=== PATIENT | male | born 1990 | race Two or more races ===

== ENCOUNTER 2024-12-26 09:25 | Emergency (ER) | payer MEDICAID ==
[~2024-12-26] VITALS: Ht 175.3 cm; Wt 93.4 kg
--- NOTE | 2024-12-26 09:48 | ED.PDOC ---
General HPI Comments HPI: 34 y/o M, with PMHx of DM presents to the ED for CC of testicular swelling. Patient states, he has been experiencing right scrotal swelling x3days. Patient reports, being seen at [facility] for symptoms today (12/26/24) and being relayed to the ED for a further evaluation and a testicular ultrasound. Patient denies any history of STD/STI, penile discharge, back pain, or fever. No other symptoms or modifying factors present at this time. Initial Vitals BP: HR: RR: O2: Temp: Past Medical History: DM Past Surgical History: DENIES ANY Social History: Denies ETOH, smoking, and drug use. Medications: METFORMIN Allergies: NKA HPI: Poor Historian. REVIEW OF SYSTEMS: CONSTITUTIONAL: Denies acute: fever, diaphoresis, chills, generalized weakness. HEAD: Denies acute: headache, photophobia Eyes: Denies acute: Double vision, vision loss, eye pain, eye discharge. EARS: Denies acute: tinnitus, hearing loss, ear discharge, ear pain, THROAT: Denies acute: sore throat, swelling, difficulty swallowing , pain with swallowing, change in voice. NECK: Denies acute: neck pain, neck swelling, stiff neck. HEART: Denies acute : chest pain, palpitations, LUNGS: Denies acute: SOB, wheezing, cough, hemoptysis ABDOMEN: Denies acute: abdominal pain, Nausea, Vomiting, diarrhea, melena , hematemesis, hematochezia SKIN: Denies acute: rash, redness, lesions, itchiness. EXTREMITIES: Denies acute: calf pain, numbness, tingling, weakness, denies pain in extremity. Denies acute: Low back pain. Neuro: Denies acute: focal neurological deficit, motor or sensory focal neurological deficit, tremors, seizure like activity, confusion, dizziness, change in mental status, loss of bowel or bladder function, cauda equina like symptoms. : Denies acute: dysuria, hematuria, flank pain, increase in urinary frequency. PSYCH: Denies acute: hallucination, suicidal ideation, homicidal ideation. PHYSICAL EXAM: General: ---no-----acute distress, awake and alert. Head: normocephalic, atraumatic. Neck: supple, trachea is midline, no swelling. Throat: Normal phonation. Eyes:, no erythema, no purulent discharge, no proptosis, no icterus. Heart: regular rate, regular rhythm, no significant murmur appreciated. Lungs: no apparent respiratory distress, Able to speak in full sentences. No wheezing, no rhonchi, no crackles. No stridors Clear to auscultation bilaterally. Abdomen: non tender to palpation, non distended, soft, no guarding, no rebound, + bowel sounds. : Evaluation of the groin. Patient has normal external male genitalia uncircumcised. There is no findings to suggest inguinal hernia. No apparent swelling of the testicles. No erythema, no crepitus, no tenderness to palpation of the testicles. No palpable masses in the scrotum. Patient denies any history of STDs or penile discharge. Denies any urinary symptoms. Patient states that the swelling has significantly improved today. Neuro: Awake, Alert, oriented to name, self, situation, follows commands GCS=15. Speech is normal. Skin: no petechia, no purpura, no cyanosis, non-pale, not jaundice. Lower extremities: --no - Pitting edema no deformity, no focal swelling, no calf TTP. Makes eye contact. moves all four extremities. Face: no apparent facial droop. Ambulating in the ED independently. ED COURSE: DISCLAIMER: This medical document was created using an electronic medical record system with voice recognition software and computerized dictation system. Although this document has been carefully reviewed, there might still be some phonetic and typographical errors. Occasional wrong-word or "sound-alike" substitutions may have occurred due to the inherent limitations of voice recognition software. These areas are purely typographical due to imperfections of the software pro grams and do not reflect any compromise in the patient's medical care. Please read the chart carefully and recognize, using context, where these substitutions have occurred. Time Seen by MD: 09:30 Reviewed notes: Nurses Notes, Medications, Allergies Allergies: Coded Allergies: NO KNOWN ALLERGIES (Unverified , 12/26/24) Home Meds Active Scripts Cephalexin Monohydrate (Cephalexin) 500 Mg Cap, 500 MG PO Q8HR for 5 Days, #15 CAP Prov:SAJI YOUNG DO 12/26/24 Information Source: Patient Mode of Arrival: Ambulatory Severity: Moderate Inability to void: None Timing: Days Duration: Since onset Prehospital treatment: None Onset: Spontaneous Symptoms: None History of: None Penile discharge: None Modifying factors: None associated signs and symptoms: None Was a procedure done? Was a procedure done?: No Differential Diagnosis Kidney stone (Female): N/A Kidney stone (Male): N/A Penile/Scrotal: Epidiymitis, Foreign Body, Prostatitis, STD, UTI, Fractured Penis, Phimosis, Hydrocele, Testicular Torsion, Urolithiasis, Urinary Retention Urinary Problem (Male): Bladder Obstruction Urinary Problem (Female): N/A X-Ray, Labs, Meds, VS Vital Signs Date Time Temp Pulse Resp B/P (MAP) Pulse Ox O2 Delivery O2 Flow Rate FiO2 12/26/24 10:39 80 18 95 Room Air 12/26/24 10:39 98.6 80 18 146/66 (92) 95 98.6 12/26/24 09:36 98.3 95 18 131/92 (105) 97 98.3 Lab Test 12/26/24 10:05 12/26/24 09:38 Range/Units White Blood Count 5.6 4.4-10.8 10^3/uL Red Blood Count 6.00 H 4.5-5.90 10^6/uL Hemoglobin 17.5 13.5-17.5 g/dL Hematocrit 51.9 41.0-53.0 % Mean Corpuscular Volume 86.5 80.0-100.0 fL Mean Corpuscular Hemoglobin 29.1 28.0-32.0 pg Mean Corpuscular Hemoglobin Concent 33.7 32.0-36.0 g/dL Red Cell Distribution Width 13.7 11.8-14.3 % Platelet Count 278 140-450 10^3/uL Mean Platelet Volume 7.5 6.9-10.8 fL Neutrophils (%) (Auto) 60.7 37.0-80.0 % Lymphocytes (%) (Auto) 28.2 10.0-50.0 % Monocytes (%) (Auto) 8.5 0.0-12.0 % Eosinophils (%) (Auto) 1.8 0.0-7.0 % Basophils (%) (Auto) 0.8 0.0-2.0 % Neutrophils # (Auto) 3.4 1.6-8.6 10 ^3/uL Lymphocytes # (Auto) 1.6 0.4-5.4 10 ^3/uL Monocytes # (Auto) 0.5 0-1.3 10 ^3/uL Eosinophils # (Auto) 0.1 0-0.8 10 ^3/uL Basophils # (Auto) 0 0-0.2 10 ^3/uL Nucleated Red Blood Cells 0.2 % Sodium Level 138 136-145 mmol/L Potassium Level 3.9 3.5-5.1 mmol/L Chloride Level 101 98-107 mmol/L Carbon Dioxide Level 29 20-31 mmol/L Anion Gap 8 5-15 Blood Urea Nitrogen 9 9-23 mg/dL Creatinine 0.93 0.700-1.30 mg/dL Glomerular Filtration Rate Calc 111 >90 mL/min BUN/Creatinine Ratio 9.7 L 10.0-20.0 Serum Glucose 224 H 74-106 mg/dL Calcium Level 10.5 H 8.7-10.4 mg/dL Urine Color Yellow Yellow Urine Clarity Clear Clear Urine pH 6.0 5.0-9.0 Urine Specific [place] 1.036 H 1.001-1.035 Urine Protein 1+ H Negative Urine Ketones 1+ H Negative Urine Blood Negative Negative /uL Urine Nitrite Negative Negative Urine Bilirubin Negative Negative Urine Urobilinogen Normal Negative mg/dL Urine Leukocyte Esterase 2+ Negative /uL Urine RBC 4 0 - 3 /hpf Urine Microscopic WBC 75 H 0-3 /HPF Urine Squamous Epithelial Cells Few <5 /hpf Urine Bacteria None seen None Seen /hpf Urine Mucus Few None Seen Urine Glucose 4+ H Normal mg/dL Chlamydia trachomatis (HUNG) Positive H Negative Neisseria gonorrhoeae (HUNG) Negative Negative [address] [address] Ph: [phone] DIAGNOSTIC IMAGING Diagnostic Imaging Report : [id number] Signed PATIENT: SNEHA PATRICK ACCT: [id number] UNIT: [id number] : 1990 LOC: ER ROOM / BED: / AGE / SEX: 34 / M ADM STATUS: REG ER SERVICE [id number] ORDERING PHYSICIAN: SAJI YOUNG DO PROCEDURE(s): TESUS - TESTICULAR ULTRASOUND REASON: R testicular pain and swelling ORDER NUMBER(s): [id number], ACCESSION NUMBER(s): [id number] ULTRASOUND OF SCROTUM AND CONTENTS. INDICATION: R testicular pain and swelling COMPARISON: None TECHNIQUE: Multiple real-time grayscale sonographic and color and duplex Doppler images of the scrotum and its contents were obtained. FINDINGS: The right testicle measures 3.4 x 2.2 x 3.8 cm. The left testicle measures 3.8 x 1.9 x 2.9 cm. Both testicles demonstrate homogeneous echotexture without evidence of focal lesions. The right epididymal head measures 1.8 cm. The left epididymal head measures 0.9 cm. Subsequent color and duplex Doppler interrogation of the testes demonstrated symmetric normal vascular flow to both testicles. No focal areas of hyperemia were seen. IMPRESSION: 1. No evidence of torsion, epididymitis, and/or orchitis. ATED BY: JARETH HERNANDEZ MD DICTATED DATE/TIME: 12/26/24 1040 SIGNED BY: JARETH HERNANDEZ MD SIGNED DATE/TIME: 12/26/24 1040 CC: Time of 1ST Reevaluation: 10:00 Reevaluation 1ST: Unchanged Patient Education/Counseling: Diagnosis, Treatment Family Education/Counseling: No Family Present Comments Patient presented with the above HPI.--right testicular pain----workup was init iated. patient was found with the above mentioned diagnosis. the following medications were ordered: please refer to order lists of meds and tests obtained by myself Dr. Young. Patient ED course and VS have been stabilized. Patient has been reassessed in the ED and remained in a stable condition. Pertinent incidental findings were discussed with the patient and/or family. Patient/family voices understanding and is agreeable with plan. Patient has been observed in the ED adequate length of time to insure improvement/stability. Escalation of care considered: Consideration of escalation to observation or admission Chlamydia gonorrhea and Trichomonas orders were placed but results were still pending at the time of disposition. Patient denies any history of STDs. Patient was DISCHARGED home in a stable condition. All the reports of any imaging studies that were ordered by myself were reviewed by myself. Departure 1 Departure Time of Disposition: 10:47 Impression: Primary Impression: Right testicular pain Additional Impression: UTI (urinary tract infection) Disposition: 01 HOME / SELF CARE / HOMELESS Condition: Stable Additional Instructions: Additional instructions: You MUST follow-up with your primary care/family doctor in 1 to 2 days. If you are unable to see your primary care/family doctor, please return to our emergency room for re-assessment and re-evaluation in 1 to 2 days. Return to the emergency room here in our facility or to the nearest ER [facility] if your symptoms change or worsen. CONSULTATIONS: you MUST Follow-up for consultation as soon as possible with: --urology in 1-2 days. Please call for appointment. You MUST call the consultants office yourself to make an appointment. You may need to arrange that through your insurance and/or your primary/family doctor. If you are unable to see the technical support consultant in 1 to 2 days, you must return to our emergency room (or any other ER of your choice) for re-assessment and re-evalua tion. Adequate fluid hydration. Pelvic rest. Below is a copy of your radiological report for follow up: [place] [address] Ph: [phone] DIAGNOSTIC IMAGING Diagnostic Imaging Report : [id number] Signed PATIENT: SNEHA PATRICK ACCT: [id number] UNIT: [id number] : 1990 LOC: ER ROOM / BED: / AGE / SEX: 34 / M ADM STATUS: REG ER SERVICE 0941 ORDERING PHYSICIAN: SAJI YOUNG DO PROCEDURE(s): TESUS - TESTICULAR ULTRASOUND REASON: R testicular pain and swelling ORDER NUMBER(s): [id number], ACCESSION NUMBER(s): [id number] ULTRASOUND OF SCROTUM AND CONTENTS. INDICATION: R testicular pain and swelling COMPARISON: None TECHNIQUE: Multiple real-time grayscale sonographic and color and duplex Doppler images of the scrotum and its contents were obtained. FINDINGS: The right testicle measures 3.4 x 2.2 x 3.8 cm. The left testicle measures 3.8 x 1.9 x 2.9 cm. Both testicles demonstrate homogeneous echotexture without evidence of focal lesions. The right epididymal head measures 1.8 cm. The left epididymal head measures 0.9 cm. Subsequent color and duplex Doppler interrogation of the testes demonstrated symmetric normal vascular flow to both testicles. No focal areas of hyperemia were seen. IMPRESSION: 1. No evidence of torsion, epididymitis, and/or orchitis. ATED BY: JARETH HERNANDEZ MD DICTATED DATE/TIME: 12/26/24 1040 SIGNED BY: JARETH HERNANDEZ MD SIGNED DATE/TIME: 12/26/24 1040 CC: e-Prescriptions Cephalexin Monohydrate (Cephalexin) 500 Mg Cap 500 MG PO Q8HR for 5 Days, #15 CAP Prov: SAJI YOUNG DO 12/26/24 Discharged With: Self Critical Care Note Critical Care Time?: No Stability Stability form required: No I personally scribed for SAJI YOUNG DO ([email or web address]) on 12/26/24 at 09:48. Electronically submitted by Linda Urbina ([email or web address]). I personally scribed for SAJI YOUNG DO ([email or web address]) on 12/26/24 at 11:21. Electronically submitted by Linda Urbina ([email or web address]). SAJI YOUNG DO Dec 26, 2024 09:48
[2024-12-26 10:12] LABS: Urine Protein, UAD 1+ (Negative)
[2024-12-26 10:22] LABS: Hematocrit 51.9 % (41.0-53.0); Hemoglobin 17.5 g/dL (13.5-17.5); Mean Corpuscular Hemoglobin 29.1 pg (28.0-32.0); Mean Corpuscular Volume 86.5 fL (80.0-100.0); Nucleated Red Blood Cells % 0.2 %
[2024-12-26 10:39] VITALS: BP 146/66; PULSE 80; RESP 18; TEMP 98.6; O2SAT 95
--- NOTE | 2024-12-26 10:42 | DVH ---
ULTRASOUND OF SCROTUM AND CONTENTS. INDICATION: R testicular pain and swelling COMPARISON: None TECHNIQUE: Multiple real-time grayscale sonographic and color and duplex Doppler images of the scrotu m and its contents were obtained. FINDINGS: The right testicle measures 3.4 x 2.2 x 3.8 cm. The left testicle measures 3.8 x 1.9 x 2.9 cm. Both testicles demonstrate homogeneous echotexture without evidence of focal lesions. The right epididymal head measures 1.8 cm. The left epididymal head measures 0.9 cm. Subsequent color and duplex Doppler interrogation of the testes demonstrated symmetric normal vascula r flow to both testicles. No focal areas of hyperemia were seen. IMPRESSION: 1. No evidence of torsion, epididymitis, and/or orchitis.
[2024-12-26 10:43] LABS: Anion Gap 8 (5-15); Carbon Dioxide 29 mmol/L (20-31); Chloride 101 mmol/L (98-107); Potassium 3.9 mmol/L (3.5-5.1); Sodium 138 mmol/L (136-145)
[2024-12-26 10:49] LABS: BUN/Creatinine Ratio 9.7 (10.0-20.0)
[2024-12-26 10:51] LABS: Glucose 224 mg/dL (74-106)
[2024-12-26] MEDS ORDERED: CEPH500C PO (10:51)
[2024-12-26 10:52] LABS: Blood Urea Nitrogen 9 mg/dL (9-23); Calcium 10.5 mg/dL (8.7-10.4)
[2024-12-26] MEDS: cefTRIAXone 1GM/50ML D5W 50 ML IV ONE (11:03)
[2024-12-28 03:06] LABS: Chlamydia Trachomatis, NAA Positive (Negative); Neisseria gonorrhoeae, NAA Negative (Negative)
== END 2024-12-26 11:28 | disposition home or self-care (01) ==
LOC: ER 09:25
DX: N50.811 Right testicular pain (principal); N39.0 Urinary tract infection, site not specified; E11.9 Type 2 diabetes mellitus without complications; Z79.899 Other long term (current) drug therapy
CPT/HCPCS: 36415; 76870; 80048; 81001; 85025; 87491; 87591; 96365; 99285; J0696